=== PATIENT | male | born 1990 | race Caucasian/White ===

== ENCOUNTER 2017-03-26 19:24 | Emergency (ER) | payer BC ==
[~2017-03-26] VITALS: Ht 175.3 cm; Wt 65.8 kg
[~2017-03-26 19:24] MED LIST: ACHYD1T PO; CIPR500T78 PO; CYCL10TA45 PO; HYDR1TAB8 OP; HYOS0.1216 PO; NAPR250T2 PO; NITR-33 PO; NITR-65 PO; ONDA-42 SL; OXYC-12 PO; PNT40TEC PO; TMSL.4C PO; TORADOL 10 MG PO
[2017-03-26] MEDS ORDERED: NS IV 1000 ML 1,000 ML IV STA (20:16)
[2017-03-26] MEDS ORDERED: KETOROLAC 30 MG/ML VIAL IVP STA (20:16)
[2017-03-26] MEDS ORDERED: ONDANSETRON 4 MG/2 ML (SDV) Z0FRAN IVP ONE (20:30)
[2017-03-26 20:38] LABS: BASOPHILS % (AUTO) 0 % (0-10); EOSINOPHILS # (AUTO) 0.1 10^3/uL (0.0-0.3); EOSINOPHILS % (AUTO) 0 % (0-10); HEMATOCRIT 42 % (40-54); LYMPHOCYTES # (AUTO) 1.8 X 10^3 (1.0-4.0); LYMPHOCYTES % (AUTO) 7 % (12-44); MEAN CORPUSCULAR HEMOGLOBIN 30 PG (25-34); MEAN CORPUSCULAR HGB CONC 36 G/DL (32-36); MEAN CORPUSCULAR VOLUME 83 FL (80-99); MEAN PLATELET VOLUME 10.4 FL (7.4-10.4); MONOCYTES # (AUTO) 1.8 X 10^3 (0.0-1.0); MONOCYTES % (AUTO) 8 % (0-12); NEUTROPHILS # (AUTO) 20.3 X 10^3 (1.8-7.8); NEUTROPHILS % (AUTO) 85 % (42-75); PLATELET COUNT 208 10^3/uL (130-400); RED BLOOD COUNT 5.06 10^6/uL (4.35-5.85); RED CELL DISTRIBUTION WIDTH 12.2 % (10.0-14.5)
[2017-03-26 20:53] LABS: ALANINE AMINOTRANSFERASE 35 U/L (0-55); ALBUMIN 4.2 GM/DL (3.2-4.5); ALKALINE PHOSPHATASE 73 U/L (40-136); BILIRUBIN,TOTAL 1.3 MG/DL (0.1-1.0); BUN/CREATININE RATIO 10; CALCIUM 9.4 MG/DL (8.5-10.1); CARBON DIOXIDE 21 MMOL/L (21-32); CHLORIDE 104 MMOL/L (98-107); CREATININE SERUM 0.98 MG/DL (0.60-1.30); GFR ESTIMATED > 60; GLUCOSE 145 MG/DL (70-105); POTASSIUM 3.7 MMOL/L (3.6-5.0); SODIUM 138 MMOL/L (135-145); TOTAL PROTEIN 7.7 GM/DL (6.4-8.2)
--- NOTE | 2017-03-26 20:57 | ED Cough/URI ---
General Chief Complaint: Cough/Cold/Flu Symptoms Stated Complaint: CHILLS/VOMITING/HEADACHE/SORE THROAT Nursing Triage Note: PT TO ED 2 W/ S.O. FOR C/O CONGESTION, SORE THROAT, COUGH, CHILLS ET BODY ACHES X3 DAYS. STATES HE'S TAKEN NYQUIL FOR SYMPTOMS BUT DENIES IMPROVEMENT Source: patient, family Exam Limitations: no limitations History of Present Illness Date Seen by Provider: Mar 26, 2017 Time Seen by Provider: 20:12 Initial Comments Here with report of fevers, chills, body aches, cough and occasional vomiting. States that he's coughing and gagging and vomiting. States he doesn't believe that this is the flu because he has never felt like this when he is had the flu before and then goes on to describe all of the flu symptoms. Denies dysuria. He has taken some NyQuil but otherwise not taken anything for the pain or other symptoms. Timing/Duration: getting worse, other Severity/Quality: moderate, dry cough Associated Symptoms: cough, fever/chills, muscle aches, nasal congestion, nasal drainage, sore throat Allergies and Home Medications Allergies Coded Allergies: hydrocodone (Unverified Allergy, Unknown, HEADACHE AND NAUSEA, 01/16/14) Home Medications Hydrocodone Bit/Acetaminophen 1 Tab Tablet, 1-2 TAB PO Q4H, #30 MAY TAKE 1 OR 2 TABS BY MOUTH EVERY 4 HRS NEEDED FOR PAIN. Prescribed by: SKY GRIMALDO on 01/17/14 1128 Nitrofurantoin Macrocrystals 100 Mg Capsule, 1 EACH PO BID, #14 TAKE ONE CAPSULE BY MOUTH TWICE A DAY FOR 7 DAYS. USE ALL OF THIS ANTIBIOTIC PRESCRIBED. Prescribed by: SKY GRIMALDO on 01/17/14 1128 Ondansetron Hcl 4 Mg Tab, 4 MG SL Q4H, #10 FOR NAUSEA AND VOMITING Prescribed by: ROSA CHAMBERS on 01/09/14 0228 Tamsulosin Hcl 0.4 Mg Cap.er.24h, 0.4 MG PO DAILY, #10 Prescribed by: ROSA CHAMBERS on 01/09/14 0228 Constitutional: see HPI, chills, fever, malaise EENTM: see HPI Respiratory: see HPI, No wheezing Cardiovascular: no symptoms reported Gastrointestinal: No diarrhea, nausea, vomiting Genitourinary: no symptoms reported Musculoskeletal: see HPI Skin: no symptoms reported All Other Systems Reviewed Negative Unless Noted: Yes Past Qedrxvy-Tnxqfq-Dcvtpm Hx Patient Social History Alcohol Use: Denies Use Recreational Drug Use: No Smoking Status: Current Everyday Smoker Type Used: Electronic/Vapor Recent Foreign Travel: No Contact w/Someone Who Travel: No Recent Infectious Disease Expo: No Physical Abuse: No Sexual Abuse: No Mistreated: No Fear: No Seasonal Allergies Seasonal Allergies: No Surgeries History of Surgeries: No Respiratory History of Respiratory Disorde: No Cardiovascular History of Cardiac Disorders: No Neurological History of Neurological Disord: No Reproductive System Hx Reproductive Disorders: No Sexually Transmitted Disease: No Gastrointestinal History of Gastrointestinal Di: No Musculoskeletal History of Musculoskeletal Dis: Yes Musculoskeletal Disorders: Spasms Endocrine History of Endocrine Disorders: No Cancer History of Cancer: No Psychosocial History of Psychiatric Problem: No Suicide Risk Score: 0 Integumentary History of Skin or Integumenta: No Blood Transfusions History of Blood Disorders: No Adverse Reaction to a Blood Tr: No Reviewed Nursing Assessment Reviewed/Agree w Nursing PMH: Yes Family Medical History Significant Family History: No Pertinent Family Hx Physical Exam Vital Signs Vital Sign - Last 12Hours 03/26/17 19:31 Temp 98.4 Pulse 91 Resp 20 B/P (MAP) 137/82 (100) Pulse Ox 96 O2 Delivery Room Air Capillary Refill : Less Than 3 Seconds General Appearance: WD/WN, no apparent distress HEENT: PERRL/EOMI, pharynx normal Neck: full range of motion, supple Respiratory: lungs clear, normal breath sounds Cardiovascular: regular rate, rhythm, no murmur Gastrointestinal: non tender, soft Extremities: non-tender, normal inspection Neurologic/Psychiatric: alert, oriented x 3 Skin: normal color, warm/dry Progress/Results/Core Measures Suspected Sepsis Recent Fever Within 48 Hours: Yes Infection Criteria Present: None New/Unexplained Altered Menta: No Sepsis Screen: No Definite Risk Sepsis Diagnosis: SIRS Temperature:98.4 Pulse: 91 Respiratory Rate: 20 Laboratory Tests 03/26/17 20:25: White Blood Count 24.0H Blood Pressure 137 /82 Mean: 100 Laboratory Tests 03/26/17 20:25: Creatinine 0.98, Platelet Count 208, Total Bilirubin 1.3H Results/Orders Lab Results Laboratory Tests Test 03/26/17 20:17 03/26/17 20:25 Range/Units Group A Streptococcus Screen POSITIVE H NEGATIVE White Blood Count 24.0 H 4.3-11.0 10^3/uL Red Blood Count 5.06 4.35-5.85 10^6/uL Hemoglobin 15.0 13.3-17.7 G/DL Hematocrit 42 40-54 % Mean Corpuscular Volume 83 80-99 FL Mean Corpuscular Hemoglobin 30 25-34 PG Mean Corpuscular Hemoglobin Concent 36 32-36 G/DL Red Cell Distribution Width 12.2 10.0-14.5 % Platelet Count 208 130-400 10^3/uL Mean Platelet Volume 10.4 7.4-10.4 FL Neutrophils (%) (Auto) 85 H 42-75 % Lymphocytes (%) (Auto) 7 L 12-44 % Monocytes (%) (Auto) 8 0-12 % Eosinophils (%) (Auto) 0 0-10 % Basophils (%) (Auto) 0 0-10 % Neutrophils # (Auto) 20.3 H 1.8-7.8 X 10^3 Lymphocytes # (Auto) 1.8 1.0-4.0 X 10^3 Monocytes # (Auto) 1.8 H 0.0-1.0 X 10^3 Eosinophils # (Auto) 0.1 0.0-0.3 10^3/uL Basophils # (Auto) 0.0 0.0-0.1 10^3/uL Neutrophils % (Manual) 82 % Lymphocytes % (Manual) 6 % Monocytes % (Manual) 4 % Eosinophils % (Manual) 0 % Basophils % (Manual) 0 % Band Neutrophils 8 % Blood Morphology Comment NORMAL Sodium Level 138 135-145 MMOL/L Potassium Level 3.7 3.6-5.0 MMOL/L Chloride Level 104 98-107 MMOL/L Carbon Dioxide Level 21 21-32 MMOL/L Anion Gap 13 5-14 MMOL/L Blood Urea Nitrogen 10 7-18 MG/DL Creatinine 0.98 0.60-1.30 MG/DL Estimat Glomerular Filtration Rate > 60 BUN/Creatinine Ratio 10 Glucose Level 145 H 70-105 MG/DL Calcium Level 9.4 8.5-10.1 MG/DL Total Bilirubin 1.3 H 0.1-1.0 MG/DL Aspartate Amino Transf (AST/SGOT) 33 5-34 U/L Alanine Aminotransferase (ALT/SGPT) 35 0-55 U/L Alkaline Phosphatase 73 40-136 U/L Total Protein 7.7 6.4-8.2 GM/DL Albumin 4.2 3.2-4.5 GM/DL Micro Results Microbiology 03/26/17 Influenza Types A,B Antigen (NELL) - Final, Complete My Orders Orders - JIGNESH VALDES MD Cbc With Automated Diff (03/26/17 20:16) Comprehensive Metabolic Panel (03/26/17 20:16) Rapid Strep A Screen (03/26/17 20:16) Influenza A And B Antigens (03/26/17 20:16) Ondansetron Injection (Zofran Injectio (03/26/17 20:30) Ns Iv 1000 Ml (Sodium Chloride 0.9%) (03/26/17 20:16) Saline Lock/Iv-Start (03/26/17 20:16) Ketorolac Injection (Toradol Injection) (03/26/17 20:16) Manual Differential (03/26/17 20:25) Ns Iv 1000 Ml (Sodium Chloride 0.9%) (03/26/17 21:21) Penicillin G Proc/[place] 1.2 Mu (Bicillin (03/26/17 21:30) Medications Given in ED Current Medications Medications Dose Ordered Sig/Marcia Route Start Time Stop Time Status Last Admin Dose Admin Ondansetron HCl 4 mg ONCE ONCE IVP 03/26/17 20:30 03/26/17 20:31 DC 03/26/17 20:30 4 MG Penicillin G Procaine/ Benzathine 1,200,000 unit ONCE ONCE IM 03/26/17 21:30 03/26/17 21:31 DC 03/26/17 21:44 1,200,000 UNIT Sodium Chloride 1,000 ml @ 0 mls/hr Q0M ONCE IV 03/26/17 21:21 03/26/17 21:22 DC 03/26/17 21:25 1,000 MLS/HR Vital Signs/I&O Vital Sign - Last 12Hours 03/26/17 19:31 Temp 98.4 Pulse 91 Resp 20 B/P (MAP) 137/82 (100) Pulse Ox 96 O2 Delivery Room Air Capillary Refill : Less Than 3 Seconds Blood Pressure Mean: 100 Progress Note : Progress Note Seen and evaluated. IV, labs, normal saline 1 L bolus, Toradol 30 mg IV, and influenza screen ordered. Zofran 4 mg IV. Monitor patient. Patient is Positive and influenza negative. We will give penicillin G 1.2 million units IM and repeat normal saline 1 L bolus. Patient is feeling better now. 2220: Patient remains feeling better and not persistent infection penicillin. Discharged home with return precautions. Patient verbalize understanding instructions and agreement with plan. Departure Impression Impression: Primary Impression: Strep pharyngitis Additional Impression: Influenza-like symptoms Disposition: HOME, SELF-CARE Condition: Improved Departure-Patient Inst. Decision time for Depature: 22:27 Referrals: NO,LOCAL PHYSICIAN (PCP/Family) Primary Care Physician Patient Instructions: Flu, Adult (DC), Strep Throat (DC) Add. Discharge Instructions: All discharge instructions reviewed with patient and/or family. Voiced understanding. Drink plenty of fluids. You may add ibuprofen 800 mg every 8 hours as needed for fever or pain to your current medication regimen. You may continue the DayQuil or NyQuil per package directions. If you're not using those medicines, you may add Tylenol (acetaminophen) 1000 mg every 8 hours as needed for fever or pain but do not take this with the cough medicine progress as both have acetaminophen in them. You should get plenty of rest. Return for worse pain, fever, vomiting, weakness, breathing problems or other concerns as needed. JIGNESH VALDES MD Mar 26, 2017 20:57
[2017-03-26 21:03] LABS: BAND NEUTROPHILS 8 %; BASOPHILS % (MANUAL) 0 %; EOSINOPHILS % (MANUAL) 0 %; LYMPHOCYTES % (MANUAL) 6 %; MONOCYTES % (MANUAL) 4 %; NEUTROPHILS % (MANUAL) 82 %; RBC MORPH NORMAL
[2017-03-26] MEDS ORDERED: NS IV 1000 ML 1,000 ML IV ONE (21:21)
[2017-03-26] MEDS ORDERED: PEN G PROC/BENZATH 1.2 M UNITS (BICILLIN C-R) SYR IM ONE (21:30)
[2017-03-26 22:33] VITALS: BP 129/80
== END 2017-03-26 22:33 | disposition home or self-care (01) ==
LOC: EDUNIT# 19:24 → ER 19:26
DX: J02.0 Streptococcal pharyngitis (principal); F17.210 Nicotine dependence, cigarettes, uncomplicated
CPT/HCPCS: 36415; 80053; 85007; 85027; 87430; 87804; 96361; 96372; 96374; 96375